=== PATIENT | male | born 1965 | race Caucasian/White ===

== ENCOUNTER → 2022-10-10 09:02 | Outpatient (BNVA) | payer OTHER, SELFPAY | PROVIDERS: Family Provider Family Medicine; Visit Provider Nurse Practitioner Psychiatric/Mental Health | DX: Z79.899 Other long term (current) drug therapy (principal) | CPT/HCPCS: 80061; 83036 ==

== ENCOUNTER → 2023-01-16 10:40 | Outpatient (BNVA) | payer MEDICAID, SELFPAY | PROVIDERS: Family Provider Family Medicine; Visit Provider Family Medicine Adult Medicine | DX: R63.4 Abnormal weight loss (principal); I10 Essential (primary) hypertension; Z00.00 Encounter for general adult medical examination without abnormal findings; R73.03 Prediabetes | CPT/HCPCS: 80053; 83036; 84443; 85025; G0103 ==

== ENCOUNTER → 2023-01-18 09:58 | Outpatient (BNVA) | payer MEDICAID, SELFPAY | PROVIDERS: Family Provider Family Medicine; Referring Provider Family Medicine Adult Medicine; Visit Provider Surgery | DX: K42.9 Umbilical hernia without obstruction or gangrene (principal); K40.91 Unilateral inguinal hernia, without obstruction or gangrene, recurrent | CPT/HCPCS: 99204 ==

== ENCOUNTER 2023-01-25 06:34 | Day surgery (SDC) | payer MEDICAID, SELFPAY ==
[2023-01-25 06:49] VITALS: BP 147/104; PULSE 83; RESP 18; TEMP 37.1; O2SAT 97
[2023-01-25 06:50] VITALS: BMI 21.8
[2023-01-25] MEDS: sodium chloride 0.9% 1,000 ML 30 ML IV (07:08)
[2023-01-25] MEDS: midazolam 1 mg/mL INJ 2 mL 2 MG IVP (07:09)
--- NOTE | 2023-01-25 07:18 | W.PM.OPSUD ---
Surgery/Procedure H&P Update DATE OF PROCEDURE: January 25, 2023 DATE H&P PERFORMED: 01/18/23 PLANNED PROCEDURE: Operation Date: 01/25/23 08:15 Proposed Procedures p [id number] lap repair of umbilical hernia and recurrent right inguinal hernia with mesh K42.9,K40.91(Not Applicable) - Chi Curry DO s ecurrent right inguinal hernia with mesh(Right) - Chi Curry DO
--- NOTE | 2023-01-25 08:22 | ANES.PREANE2 ---
Pre-Anesthetic Assessment Height/Weight: Height 1.78 m Weight 68.946 kg Temp Pulse Resp BP Pulse Ox O2 Del Method 98.7 F 83 18 147/104 97 Room Air 01/25/23 06:49 01/25/23 06:49 01/25/23 06:49 01/25/23 06:49 01/25/23 06:49 01/25/23 06:49 Operation Date: 01/25/23 08:15 Proposed Procedures p [id number] lap repair of umbilical hernia and recurrent right inguinal hernia with mesh K42.9,K40.91(Not Applicable) - Chi Curry DO s ecurrent right inguinal hernia with mesh(Right) - Chi Curry DO Familial anesthetic complications: Wakes up crazy Was Beta Krish taken within 24 hours: N/A Was Clonidine taken within 24 hours: N/A Last intake: Intake Last Liquid Date 01/24/23 Last Liquid Time 20:00 Last Solid Date 01/24/23 Last Solid Time 20:00 Social Tobacco and No alcohol Exam alert, oriented x 3 and regular rate & rhythm Airway Submandibular: within normal limits Cervical ROM: within normal limits Mallampati: Class II Dentition: false Pulmonary Chronic Obstructive Pulmonary Disease CV/HEM Hypertension Neuropsych Anxiety and Depression PTSD Anesthetic Plan ASA status: 3 Anesthesia: General Medications/Allergies Home Medications Medication Instructions Recorded Confirmed Last Taken Type citalopram 20 mg tablet (Celexa) 20 mg PO .morning #30 tabs 11/10/22 01/25/23 2 Days Ago Rx ~01/23/23 lisinopril 40 mg tablet 40 mg PO .morning #30 tabs 11/10/22 01/25/23 2 Days Ago Rx ~01/23/23 Allergies Allergy/AdvReac Type Severity Reaction Status Date / Time gabapentin Allergy ALGY-Rash Uncoded 01/25/23 06:42 Current Medications Generic Name Dose Route Start Last Admin Trade Name Freq PRN Reason Stop Dose Admin Sodium Chloride 1,000 mls @ 30 mls/hr 01/25/23 06:45 01/25/23 07:08 Sodium Chloride 0.9% IV 01/26/23 06:44 30 mls/hr .Q24H JOSEFINA Administration Midazolam HCl 2 mg 01/25/23 06:38 01/25/23 07:09 Midazolam 1 Mg/Ml Inj 2 Ml IVP 2 mg ONCE PRN Administration Preop Anxiety PFSH Anesthesia Medical History Umbilical hernia Right inguinal hernia Health care maintenance Hypertension Cataracts, bilateral Weight loss of more than 10% body weight Pre-diabetes Chronic post-traumatic stress disorder Nicotine dependence, cigarettes, uncomplicated Generalized anxiety disorder Major depressive disorder, recurrent episode, moderate with anxious distress Psychiatric care Surgical History H/O hernia repair congenital hernia Family History Father Cancer Mother Cancer Social History Smoking and tobacco/nicotine status: current every day tobacco/nicotine user Quit status (tobacco/nicotine): considering quitting Second hand smoke exposure: No Alcohol intake: never Substance/Drug Use: former Date of last use: 2018 used weed and meth Adopted: No Caregiver/support person: No Lives independently: No Household members: spouse Housing: House Marital status: Number of children: 4 Highest education level completed: 11th Grade Education level details: have math and language left to get hiset service: No Current occupational status: unemployed and other Details: considering going to apply to get disability Current occupational exposures/hazards: No Pets and animals: Yes Leisure activites: music and fishing Sexually active: Yes Do you think of yourself as: Straight/Heterosexual Current gender identity: Male An/Pentecostal: Confucianist Special an needs: No Agree to transfusion: Yes Data Anesthesia Cardiac Studies: No Data to Display
--- NOTE | 2023-01-25 08:31 | PC.NURSE ---
Surgery canceled at this time by Dr Curry due to insurance issues.
== END 2023-01-25 08:30 | disposition home or self-care (01) ==
PROVIDERS: PCP Family Medicine Adult Medicine; Visit Provider Surgery
PROC: 0WQF4ZZ Repair Abdominal Wall, Percutaneous Endoscopic Approach (ICD-10-PCS; principal; 2023-01-25 08:05)
PROC: (CPT 49650; 2023-01-25 08:05)
DX: K42.9 Umbilical hernia without obstruction or gangrene (principal); K40.91 Unilateral inguinal hernia, without obstruction or gangrene, recurrent; Z53.8 Procedure and treatment not carried out for other reasons
CPT/HCPCS: J1100; J1885; J2250; J2405; J2704; J2710; J3010; J3490; J7030

== ENCOUNTER 2023-03-07 10:11 | Day surgery (SDC) | payer MEDICAID, SELFPAY ==
[2023-03-07 10:26] VITALS: BMI 21.8
[2023-03-07 10:30] VITALS: BP 148/105; PULSE 76; RESP 18; TEMP 37; O2SAT 98
[2023-03-07] MEDS: sodium chloride 0.9% 1,000 ML 30 ML IV (10:44)
[2023-03-07 11:19] LABS: Amphetamines Screen Urine Negative (Negative); Barbiturates Screen Urine Negative (Negative); Benzodiazepines Screen Urine Negative (Negative); Cocaine Screen Urine Negative (Negative); Opiate Screen Urine Negative (Negative); PCP Screen Urine Negative (Negative); THC Screen Urine Positive (Negative)
--- NOTE | 2023-03-07 12:29 | PC.NURSE ---
PT BEING DISCHARGE DUE TO SURGERY BEING RE-SCHEDULED. IV REMOVED.
== END 2023-03-07 12:32 | disposition home or self-care (01) ==
LOC: OR 10:12
PROVIDERS: Anesthesiology; PCP Family Medicine Adult Medicine; Visit Provider Surgery
PROC: (CPT 49650; principal; 2023-03-07 13:20)
DX: Z01.818 Encounter for other preprocedural examination (principal)
CPT/HCPCS: 80306; J7030

== ENCOUNTER 2023-04-09 08:18 | Day surgery (SDC) | payer MEDICAID, SELFPAY ==
[2023-04-09] VITALS (21 sets, daily range): BP systolic 115–147; BP diastolic 61–99; PULSE 80–99; RESP 10–22; TEMP 36.7–37.3; O2SAT 91–100; BMI 22.2
--- NOTE | 2023-04-09 09:15 | ANES.PREANE2 ---
Pre-Anesthetic Assessment Height/Weight: Height 1.78 m Weight 70.307 kg Temp Pulse Resp BP Pulse Ox O2 Del Method 99.2 F 81 19 H 145/87 99 Room Air 04/09/23 08:34 04/09/23 08:34 04/09/23 08:34 04/09/23 08:34 04/09/23 08:34 04/09/23 08:36 Operation Date: 04/09/23 10:05 Proposed Procedures p [id number] lap repair of umbilical hernia and recurrent right inguinal hernia with mesh K42.9,k40.91(Not Applicable) - Ilia Siddiqui MD s Laparoscopic Inguinal Hernia Repair(Not Applicable) - Ilia Siddiqui MD Familial anesthetic complications: None Was Beta Krish taken within 24 hours: N/A Was Clonidine taken within 24 hours: N/A Last intake: Intake Last Liquid Date 04/08/23 Last Liquid Time 23:45 Last Solid Date 04/08/23 Last Solid Time 23:45 Social Tobacco and No alcohol encouraged smoking cessation and F/U w/ pcp for guidance Exam alert, oriented x 3, clear to auscultation bilaterally and regular rate & rhythm Airway Mallampati: Class II Dentition: false CV/HEM Hypertension Neuropsych Anxiety Anesthetic Plan ASA status: 2 Anesthesia: General Risk of > 500 ml blood loss (7ml/kg in children): No Medications/Allergies Home Medications Medication Instructions Recorded Confirmed Last Taken Type lisinopril 40 mg tablet 40 mg PO .morning #30 tabs 11/10/22 04/06/23 04/06/23 Rx citalopram 40 mg tablet (Celexa) 40 mg PO .morning #30 tabs 02/13/23 04/06/23 04/06/23 Rx olanzapine 5 mg disintegrating 5 mg PO BID PRN severe 02/13/23 04/06/23 03/05/23 Rx tablet (Zyprexa Zydis) anxiety/agitation #14 tabs Allergies Allergy/AdvReac Type Severity Reaction Status Date / Time midazolam [From Versed] AdvReac Severe ADR-Agitate Verified 04/06/23 09:03 d gabapentin Allergy ALGY-Rash Uncoded 04/06/23 09:03 [facility] Anesthesia Medical History (Updated 02/13/23 @ 16:02 by Sandra Nickerson, PMHNP) Bilateral hearing loss due to cerumen impaction Umbilical hernia Right inguinal hernia Health care maintenance Hypertension Cataracts, bilateral Weight loss of more than 10% body weight Pre-diabetes Chronic post-traumatic stress disorder Nicotine dependence, cigarettes, uncomplicated Generalized anxiety disorder Major depressive disorder, recurrent episode, moderate with anxious distress Psychiatric care Surgical History H/O hernia repair congenital hernia Family History Father Cancer Mother Cancer Social History Smoking and tobacco/nicotine status: current every day tobacco/nicotine user Quit status (tobacco/nicotine): considering quitting Second hand smoke exposure: No Alcohol intake: never Substance/Drug Use: former Date of last use: 2019 used weed and meth Adopted: No Caregiver/support person: No Lives independently: No Household members: spouse Housing: House Marital status: Number of children: 4 Highest education level completed: 11th Grade Education level details: have math and language left to get hiset service: No Current occupational status: unemployed and other Details: considering going to apply to get disability Current occupational exposures/hazards: No Pets and animals: Yes Leisure activites: music and fishing Sexually active: Yes Do you think of yourself as: Straight/Heterosexual Current gender identity: Male An/Lutheran: Anabaptist Special an needs: No Agree to transfusion: Yes Data Anesthesia Cardiac Studies: No Data to Display
--- NOTE | 2023-04-09 09:44 | P.HP_ITS ---
Same Day Surgery H&P Indication for Procedure/HPI DATE OF PROCEDURE: April 09, 2023 CHIEF COMPLAINT/INDICATIONFOR SURGICAL PROCEDURE: umbilical hernia and right inguinal hernia PREOP DIAGNOSIS: umbilical hernia and right inguinal hernia. PLANNED PROCEDURE: Operation Date: 04/09/23 10:05 Proposed Procedures p [id number] lap repair of umbilical hernia and recurrent right inguinal hernia with mesh K42.9,k40.91(Not Applicable) - Ilia Siddiqui MD s Laparoscopic Inguinal Hernia Repair(Not Applicable) - Ilia Siddiqui MD Medications/Allergies* Allergies/Adverse Reactions Allergy/AdvReac Type Severity Reaction Status Date / Time midazolam [From Versed] AdvReac Severe ADR-Agitate Verified 04/06/23 09:03 d gabapentin Allergy ALGY-Rash Uncoded 04/06/23 09:03 Pertinent History/Comorbid Conditions* Medical History (Updated 02/13/23 @ 16:02 by Sandra Nickerson, [facility]) Bilateral hearing loss due to cerumen impaction Umbilical hernia Right inguinal hernia Health care maintenance Hypertension Cataracts, bilateral Weight loss of more than 10% body weight Pre-diabetes Chronic post-traumatic stress disorder Nicotine dependence, cigarettes, uncomplicated Generalized anxiety disorder Major depressive disorder, recurrent episode, moderate with anxious distress Psychiatric care Surgical History (Updated 01/16/23 @ 10:27 by Erlin Jett MD) H/O hernia repair congenital hernia Family History (Updated 01/16/23 @ 10:13 by Mago Lima LPN) Father Mother Cancer Father Mother Social History Smoking and tobacco/nicotine status: current every day tobacco/nicotine user Quit status (tobacco/nicotine): considering quitting Second hand smoke exposure: No Alcohol intake: never Substance/Drug Use: former Date of last use: 2018 used weed and meth Adopted: No Caregiver/support person: No Lives independently: No Household members: spouse Housing: House Marital status: Number of children: 4 Highest education level completed: 11th Grade Education level details: have math and language left to get hiset service: No Current occupational status: unemployed and other Details: considering going to apply to get disability Current occupational exposures/hazards: No Pets and animals: Yes Leisure activites: music and fishing Sexually active: Yes Do you think of yourself as: Straight/Heterosexual Current gender identity: Male An/Restorationist: Gnosticist Special an needs: No Agree to transfusion: Yes Pertinent Exam Findings alert, oriented x 3, clear to auscultation bilaterally, regular rate & rhythm and operative site marked Recommendations Surgery/Procedure today Coding Level of Care Code Acute Code for Chg Fwdoroteo
[2023-04-09] MEDS: ceFAZolin 2,000 MG in sodium chloride 0.9% (plus) 50 ML 100 MG IV (09:51)
[2023-04-09] MEDS: lidocaine-epi 1% 20 mL INJ INJECTION (10:30)
[2023-04-09] MEDS: BUPivacaine 0.25% INJ 10 mL INJECTION (10:30)
--- NOTE | 2023-04-09 11:55 | P.OP_ITS ---
Operative Report Date of procedure: April 09, 2023 Pre-op diagnosis: Right inguinal hernia recurrent, umbilical hernia. Post-op diagnosis: Same Post-op findings: On the right inguinal region there was a indirect inguinal hernia, there is extensive scar tissue between the sac and the surrounding tissue on the peritoneal and anterior abdominal wall likely to history of previous repair. Umbilical hernia contained preperitoneal fat and a small hernia sac that was able to be reduced Procedure done: Laparoscopic right inguinal hernia repair with mesh, open umbilical hernia repair primary. Implants: Large right-sided Bard 3D max mesh Specimens removed/disposition: Hernia sac for umbilical hernia Surgeon: Ilia Siddiqui MD Wharf Hand: SHERLY OR Staff Estimated blood loss: 10 Complications: None apparent Brief History: Is a 57-year-old male who is being evaluated for recurrent right inguinal hernia and an umbilical hernia. After discussion of all risk and benefits as documented in my previous note we decided to proceed with laparoscopic repair of right inguinal hernia and open repair of umbilical hernia. Procedure: Patient was brought into the OR. She was placed in the supine position. The abdomen was prepped and draped in the usual sterile fashion after general esthesia was given. Timeout was conducted. A 1.5 cm infraumbilical incision was made, the incision was deepened until the anterior rectus sheath was identified. The left anterior rectus sheath was opened exposing the rectus muscle, the muscle was then retracted laterally giving access to the retrorectus space. I then proceeded to insert the Spacemaker into the retrorectus space and carefully advanced at until it was in contact with the pubic bone. Under direct visualization the balloon was inflated showing adequate creation and development of the space of Retzius. The Spacemaker was removed and was replaced by a 12 mm trocar with balloon. After initial laparoscopy showed evidence of no vascular or visceral injury I proceeded to place 2 additional 5 mm trocars in the suprapubic and infraumbilical locations under direct visualization. I then pl aced my attention on the right inguinal region. I proceeded to develop the space of Borestefanis laterally, there was significant additions from the peritoneum to the anterior abdominal wall as well as to the internal ring consistent with history of previous repair. Once the space was developed laterally I then proceeded to dissect the hernia sac at the level of the internal inguinal ring, there was significant scar tissue formation, with careful blunt dissection I was able to completely reduce a large hernia sac, after reduction the vas deferens and testicular vessels appear to be intact, I also proceeded to evaluate the femoral space and no evidence of femoral hernia was noted, there was no evidence of a direct hernia. Hemostasis was verified before hernia mesh placement. I then proceeded to place a large right side 3D max mesh, the mesh was noted to overlap all the hernia spaces of the inguinal region and the medial portion extended to the level of the midline. I then proceeded to fix the mesh with a secure strap absorbable tacker. Subsequently I removed the insufflation and was able to visualize proper position of the mesh while the pneumoperitoneum was evacuated. Trocars were removed. The rectus sheath was then closed with #0 Vicryl. At this point I placed attention to the umbilical hernia. The infraumbilical incision was then extended towards the right side of the patient another 2 cm, the incision was deepened until the fascia was identified and the base umbilicus was little localized. I then used Patria clamp to encircle the umbilical stalk and hernia. I then carefully the umbilical stalk, taking careful consideration of not injuring the overlying skin. Once the skin was liberated I then proceeded to circumferentially dissect the hernia sac, the hernia was composed of a small hernia sac and some preperitoneal fat, the preperitoneal fat was excised and sent to pathology as a specimen. The hernia sac was is circumferentially dissected and all attachments to the fascia were liberated. The hernia sac was then reduced to the abdominal cavity. The fascial defect was noted to be 1,5 cm, therefore the decision was made to proceed with a primary repair without mesh. The defect was closed with several [id number] #0 Prolene sutures, the sutures were placed into the fascia under direct visualization and elevating the fascia from the abdominal wall to prevent visceral injury. Once the defect was closed there was no evidence of residual hernia and the tissue around appeared healthy and viable. The umbilicus was then tacked to the fascia using #2-0 Vicryl to recreate the umbilicus. Hemostasis was verified, local anesthesia was injected in all wounds and in the fascia of the umbilical region. The wounds were closed in layers usi ng #3-0 Vicryl for the subcutaneous tissue and #4 Monocryl for the skin. Dermabond was applied, sterile dressing was applied over the umbilical region with a cottonball in the umbilicus. The patient tolerated well the procedure, was extubated and transferred to the PACU in stable condition. Of note, all counts were correct at the end of the procedure, this was verified before closing the fascia.
[2023-04-09] MEDS: fentaNYL 50 mcg/mL INJ 2mL IVP ×2 (12:54→13:06)
[2023-04-09] MEDS: oxyCODONE 5 mg IR Tab/Cap PO (13:43)
--- NOTE | 2023-04-09 14:55 | ANE.PACU2 ---
Inpatient post-anesthesia follow up: Airway intact: Yes Vital signs: Temperature 98.2 F Pulse Rate 88 Respiratory Rate 16 Blood Pressure 118/78 Pulse Oximetry 94 Oxygen Delivery Me thod Room Air Oxygen Flow Rate 6 Fraction of Inspir ed Oxygen Hydration adequate: Yes Nausea and vomiting: No Pain level: 1 Mental status: Baseline
== END 2023-04-09 14:16 | disposition home or self-care (01) ==
PROVIDERS: PCP Family Medicine Adult Medicine; Visit Provider Surgery
PROC: (CPT 49650; 2023-04-09 09:55)
PROC: (CPT 49505; 2023-04-09 09:55)
DX: K40.90 Unilateral inguinal hernia, without obstruction or gangrene, not specified as recurrent (principal); K42.9 Umbilical hernia without obstruction or gangrene; I10 Essential (primary) hypertension; F41.9 Anxiety disorder, unspecified; F17.200 Nicotine dependence, unspecified, uncomplicated
CPT/HCPCS: 49505; 49591; 51702; 88302; C1781; J0690; J1100; J1170; J2405; J2704; J3010; J3490; P9045

== ENCOUNTER 2024-01-21 18:06 | Emergency (ER) | payer MEDICAID, SELFPAY | END 2024-01-21 18:27 | disposition left against medical advice (07) | PROVIDERS: Emergency Provider Family Medicine; PCP Family Medicine Adult Medicine | DX: Z53.21 Procedure and treatment not carried out due to patient leaving prior to being seen by health care provider (principal) ==

== ENCOUNTER → 2024-03-10 10:03 | Outpatient (BNVA) | payer MEDICAID, SELFPAY | PROVIDERS: PCP Family Medicine Adult Medicine; Visit Provider Nurse Practitioner Psychiatric/Mental Health | DX: Z79.899 Other long term (current) drug therapy (principal) | CPT/HCPCS: 80053; 80061; 80164; 83036 ==

== ENCOUNTER → 2024-03-18 14:41 | Outpatient (BNVA) | payer OTHER, SELFPAY | DX: N52.1 Erectile dysfunction due to diseases classified elsewhere (principal) | CPT/HCPCS: G0103 ==

== ENCOUNTER → 2024-10-07 14:09 | Outpatient (BNVA) | payer MEDICAID, SELFPAY ==
[2024-04-22 14:13] VITALS: BP 136/94; BMI 23.4
== END ==
DX: I10 Essential (primary) hypertension (principal)
CPT/HCPCS: 80053; 80061; 85025